=== PATIENT | female | born 1975 | race Caucasian/White ===

== ENCOUNTER 2017-07-03 07:11 | Emergency (ER) | payer MEDICAID ==
[~2017-07-03] VITALS: Ht 152.4 cm; Wt 62.1 kg
[2017-07-03 07:18] VITALS: Ht 152.4 cm; Wt 62.1 kg
[2017-07-03 09:45] VITALS: BP 109/73
== END 2017-07-03 09:45 | disposition home or self-care (01) ==
LOC: ED 07:11
DX: J20.9 Acute bronchitis, unspecified (principal)

== ENCOUNTER 2017-07-20 18:15 | Emergency (ER) | payer MEDICAID ==
[~2017-07-20] VITALS: Ht 152.4 cm; Wt 63.0 kg
[2017-07-20 18:23] VITALS: Ht 152.4 cm; Wt 63.0 kg
[2017-07-20 20:12] LABS: BASOPHIL % 0.4 % (0-2); PLATELET COUNT 289 x10^3mcL (130-400); RED CELL DISTRIBUTION WIDTH 12.6 % (11.5-14.5)
[2017-07-20 20:38] LABS: CALCIUM 8.9 mg/dL (8.5-10.1); CARBON DIOXIDE 29.1 mmol/L (21-32); CREATININE SERUM 1.2 mg/dL (0.6-1.0); POTASSIUM SERUM 3.2 mmol/L (3.5-5.1)
[2017-07-20 20:43] LABS: ALBUMIN 3.7 g/dL (3.4-5.0); BILIRUBIN TOTAL 0.1 mg/dL (0.20-1.00); TOTAL PROTEIN, SERUM 7.6 g/dL (6.4-8.2)
[2017-07-20 22:40] VITALS: BP 102/83
== END 2017-07-20 22:40 | disposition home or self-care (01) ==
LOC: ED 18:15
PROVIDERS: Emergency Medicine
DX: R10.9 Unspecified abdominal pain (principal); R11.2 Nausea with vomiting, unspecified; R19.7 Diarrhea, unspecified
CPT/HCPCS: 83880; J2270; J2405; J7030

== ENCOUNTER 2017-09-07 11:41 | Emergency (ER) | payer MEDICAID ==
[2017-09-07 11:52] VITALS: BP 141/63
== END 2017-09-07 12:43 | disposition home or self-care (01) ==
LOC: ED 11:41
DX: S81.851A Open bite, right lower leg, initial encounter (principal); W54.0XXA Bitten by dog, initial encounter; Y93.89 Activity, other specified; Y92.89 Other specified places as the place of occurrence of the external cause; Y99.8 Other external cause status
CPT/HCPCS: 90715

== ENCOUNTER 2018-07-21 09:42 | Emergency (ER) | payer MEDICAID ==
[~2018-07-21] VITALS: Ht 162.6 cm; Wt 62.6 kg
[2018-07-21 09:52] VITALS: Ht 162.6 cm; Wt 62.6 kg
[2018-07-21 13:10] VITALS: BP 128/71
== END 2018-07-21 13:10 | disposition home or self-care (01) ==
LOC: ED 09:42
DX: N60.02 Solitary cyst of left breast (principal)
CPT/HCPCS: 76641; Q0092